=== PATIENT | male | born 1940 | race Caucasian/White ===

== ENCOUNTER 2018-12-21 07:11 | Day surgery (SDC) | payer OTHER ==
[2018-12-18 13:07] LABS: BASOPHILS % (AUTO) 0.4 % (0.0-5.0); EOSINOPHILS % (AUTO) 10.1 % (0.0-8.0); HEMATOCRIT 33.1 % (42-54); LYMPHOCYTES % (AUTO) 10.7 % (21.0-51.0); MEAN CORPUSCULAR HEMOGLOBIN 30.5 pg (27.0-33.0); MEAN CORPUSCULAR VOLUME 89.6 fL (79-99); MONOCYTES % (AUTO) 7.6 % (3.0-13.0); NEUTROPHILS % (AUTO) 71.2 % (40.0-77.0); NUCLEATED RED BLOOD CELLS 0.1 % (0.0-0.19); PLATELET COUNT (AUTO) 219 K/uL (130-400); RED BLOOD CELL COUNT(AUTO) 3.69 MIL/uL (4.50-6.20); RED CELL DISTRIBUTION WIDTH 17.5 % (11.0-15.5); WHITE BLOOD COUNT (AUTO) 4.1 K/uL (4.8-10.8)
[2018-12-18 13:17] LABS: POTASSIUM 4.1 mmol/L (3.5-5.1)
[2018-12-18 13:35] VITALS: BP 125/61
[2018-12-18 13:40] LABS: INR 0.95 (0.85-1.15); PARTIAL THROMBOPLASTIN TIME 24.5 SEC (26.3-35.5)
[2018-12-18 14:24] LABS: APPEARANCE,URINE Clear (CLEAR); BILIRUBIN,URINE Negative (NEGATIVE); COLOR,URINE Yellow (YELLOW); GLUCOSE, URINE (UA) Negative (NEGATIVE); KETONES,URINE Negative (NEGATIVE); LEUKOCYTE ESTERASE ,URINE Large (NEGATIVE); NITRATE,URINE Negative (NEGATIVE); OCCULT BLOOD,URINE Small (NEGATIVE); PROTEIN,URINE POS 2+ (NEGATIVE)
[2018-12-18 14:30] LABS: BACTERIA,URINE Rare /HPF (None Seen); RBC,URINE 0-1 /HPF (0-1); SQUAMOUS EPITHELIAL CELL,UR Rare /HPF (0-2); WBC,URINE >100 /HPF (0-1)
[2018-12-21] VITALS (14 sets, daily range): BP systolic 108–139; BP diastolic 58–85
[~2018-12-21] VITALS: Ht 165.1 cm; Wt 56.9 kg
[~2018-12-21 07:11] MED LIST: FLUT1DIS3 IH; FURO20TA4 PO; NAPR-1192 PO; ROPI4TAB6 PO
[2018-12-21] MEDS ORDERED: LACTATED RINGERS 1000ML 1,000 ML IV ONE (07:41)
[2018-12-21] MEDS ORDERED: SODIUM CHLORIDE IV PRN ×2 (08:00)
[2018-12-21] MEDS ORDERED: GENTAMICIN SULFATE IV PRN ×2 (08:00)
[2018-12-21] MEDS ORDERED: ANTIBIOTIC PO (08:11)
[2018-12-21] MEDS: CEFTRIAXONE SODIUM 1 GM IVP ONE ×2 (08:15→08:27)
[2018-12-21] MEDS ORDERED: LIDOCAINE PF 2% 5ML ABBOJECT ONE (08:21)
[2018-12-21] MEDS ORDERED: PROPOFOL 10 MG/ML 20ML VIAL IV ONE (08:21)
[2018-12-21] MEDS ORDERED: FENTANYL CITRATE PF 50 MCG/1 ML 2ML VIAL ONE ×2 (08:21→09:24)
[2018-12-21] MEDS ORDERED: EPHEDRINE SULFATE 50 MG/ML AMPULE ONE (08:53)
[2018-12-21] MEDS ORDERED: BACITRACIN 1 EACH PACKET TP ONE (11:35)
--- NOTE | 2018-12-21 12:10 | NUR ---
PT DISCHARGED HOME, TOLERATING CLEAR LIQUIDS, AMBULATING WELL WITH STANDBY ASSISTANCE. CBI STOPPED AND LEG BAG APPLIED. URINE REMAINS CLEAR YELLOW. PT REPORTS BEING FULLY COMPETENT WITH AGUAYO CARE. PRESCRIPTION FOR PAIN MEDICATION GIVEN TO SPOUSE. BACITRACIN OINTMENT, AGUAYO BAG, AND URINAL SENT HOME WITH PT FOR HOME USE.
== END 2018-12-21 12:10 | disposition home or self-care (01) ==
LOC: DAH 07:11
PROVIDERS: ATTEND Urology
DX: N40.1 Benign prostatic hyperplasia with lower urinary tract symptoms (principal); R33.8 Other retention of urine; C85.90 Non-Hodgkin lymphoma, unspecified, unspecified site; J44.9 Chronic obstructive pulmonary disease, unspecified; K21.9 Gastro-esophageal reflux disease without esophagitis; J18.9 Pneumonia, unspecified organism; G25.81 Restless legs syndrome; R32 Unspecified urinary incontinence; Z79.01 Long term (current) use of anticoagulants
CPT/HCPCS: 36415; 52648; 71045; 80048; 81001; 85025; 85610; 85730; 87088; 93005; A4218; A4354; A4358; A4510; A4600; C1758; J0696; J1580; J2001; J2704; J3010 ×2; J3490; J7120 ×2

== ENCOUNTER 2018-12-22 06:43 | Emergency (ER) | payer OTHER ==
[~2018-12-22 06:43] MED LIST changes: +ANTIBIOTIC PO
[2018-12-22] MEDS ORDERED: LIDOCAINE HCL 1% 20 ML VIAL ONE (07:33)
[2018-12-22 08:59] LABS: BASOPHILS % (AUTO) 0.2 % (0.0-5.0); EOSINOPHILS % (AUTO) 13.5 % (0.0-8.0); HEMATOCRIT 32.6 % (42-54); LYMPHOCYTES % (AUTO) 6.8 % (21.0-51.0); MEAN CORPUSCULAR HGB CONC 34.6 g/dL (32.0-36.0); MEAN CORPUSCULAR VOLUME 89.5 fL (79-99); NEUTROPHILS % (AUTO) 73.5 % (40.0-77.0); PLATELET COUNT (AUTO) 177 K/uL (130-400); RED BLOOD CELL COUNT(AUTO) 3.64 MIL/uL (4.50-6.20); WHITE BLOOD COUNT (AUTO) 5.1 K/uL (4.8-10.8)
[2018-12-22] MEDS ORDERED: TETANUS/DIPHTHERIA TOXOID [ADULT] 0.5 ML VIAL IM ONE (09:03)
[2018-12-22 09:11] LABS: CREATININE 1.1 mg/dL (0.5-1.5); POTASSIUM 4.3 mmol/L (3.5-5.1)
[2018-12-22 09:15] LABS: ALBUMIN 3.3 g/dL (3.5-5.0); BILIRUBIN,TOTAL 0.5 mg/dL (0.2-1.0); TOTAL PROTEIN, SERUM 5.6 g/dL (6.0-8.3)
== END 2018-12-22 09:41 | disposition home or self-care (01) ==
LOC: EDH 06:43
DX: S01.81XA Laceration without foreign body of other part of head, initial encounter (principal); S01.21XA Laceration without foreign body of nose, initial encounter; Z85.72 Personal history of non-Hodgkin lymphomas; Z98.890 Other specified postprocedural states; W01.198A Fall on same level from slipping, tripping and stumbling with subsequent striking against other object, initial encounter; Y93.89 Activity, other specified; Y92.89 Other specified places as the place of occurrence of the external cause; Y99.8 Other external cause status
CPT/HCPCS: 12054; 36415; 70450; 70486; 72125; 80053; 85025; 90471; 90714

== ENCOUNTER 2018-12-28 09:09 | Emergency (ER) | payer OTHER | END 2018-12-28 10:01 | disposition home or self-care (01) | LOC: EDH 09:09 | DX: S01.81XD Laceration without foreign body of other part of head, subsequent encounter (principal); Z85.72 Personal history of non-Hodgkin lymphomas; X58.XXXD Exposure to other specified factors, subsequent encounter | CPT/HCPCS: 99281 ==